=== PATIENT | female | born 1995 | race Caucasian/White ===

== ENCOUNTER 2025-01-01 11:49 | Observation (INO) | payer BC ==
[2025-01-01 13:17] LABS: BASOPHILS ABSOLUTE AUTO 0.05 K/uL (0.00-0.20); BASOPHILS PERCENT AUTO 0.7 % (0.0-1.0); EOSINOPHILS ABSOLUTE AUTO 0.21 K/uL (0.00-0.45); EOSINOPHILS PERCENT AUTO 2.9 % (0.0-6.0); HEMATOCRIT 37.6 % (37.0-47.0); HEMOGLOBIN 12.7 g/dL (12.0-16.0); IMMATURE GRAN ABSOLUTE AUTO 0.01 K/uL (0.00-0.05); IMMATURE GRAN PERCENT AUTO 0.1 % (0.0-0.4); LYMPHOCYTES ABSOLUTE AUTO 1.67 K/uL (1.00-4.80); LYMPHOCYTES PERCENT AUTO 23.2 % (24.0-44.0); MEAN CORPUSCULAR HEMOGLOBIN 30.5 pg (28.0-32.0); MEAN CORPUSCULAR HGB CONC 33.8 g/dL (32.0-36.0); MEAN CORPUSCULAR VOLUME 90.4 fL (83.0-99.0); MEAN PLATELET VOLUME 10.4 fL (9.4-12.3); MONOCYTES ABSOLUTE AUTO 0.41 K/uL (0.00-0.80); MONOCYTES PERCENT AUTO 5.7 % (0.0-8.0); NEUTROPHILS ABSOLUTE AUTO 4.86 K/uL (1.80-7.70); NEUTROPHILS PERCENT AUTO 67.4 % (41.0-71.0); PLATELET COUNT,PLT 256 K/uL (150-400); RED BLOOD CELL COUNT 4.16 M/uL (4.10-5.30); WHITE BLOOD CELL COUNT,WBC 7.21 K/uL (3.9-11.3)
[2025-01-01 13:47] LABS: A/G RATIO 1.1 (0.9-1.6); ALBUMIN 3.5 g/dL (3.4-5.0); CALCIUM 8.5 mg/dL (8.5-10.1); CARBON DIOXIDE,CO2 24.2 mmol/L (21.0-32.0); CREATININE 0.9 mg/dL (0.6-1.0); EST CRCL DRUG DOSING (CG) 90.5 mL/min; POTASSIUM,K 3.7 mmol/L (3.5-5.1); PROTEIN TOTAL,TP 6.8 g/dL (6.4-8.2)
[2025-01-01 14:15] LABS: APPEARANCE,URINE SLT CLOUDY; BILIRUBIN,URINE NEGATIVE (NEGATIVE); COLOR,URINE YELLOW; GLUCOSE,URINE NEGATIVE (NEGATIVE); KETONES,URINE TRACE mg/dL (NEGATIVE); LEUKOCYTE ESTERASE,URINE NEGATIVE (NEGATIVE); NITRITE,URINE NEGATIVE (NEGATIVE); OCCULT BLOOD,URINE LARGE (NEGATIVE); PH,URINE 5.5 (5.0-8.0); PROTEIN,URINE NEGATIVE (NEGATIVE); UROBILINOGEN,URINE 0.2 EU/dL (<2.0)
[2025-01-01 14:25] LABS: BACTERIA,URINE FEW (NEGATIVE); SQUAMOUS EPITHELIAL CELLS,UR FEW; WBC,URINE 0-2 (0-5/HPF)
[2025-01-01 14:26] LABS: MUCUS,URINE LIGHT (NONE-MOD)
[2025-01-01] MEDS: Morphine 4 MG/ML Syringe IVPUSH STA ×2 (14:46→16:53)
[2025-01-01] MEDS: Ondansetron 4 MG/2 ML SDV IVPUSH STA (14:46)
[2025-01-01 15:33] LABS: HEMATOCRIT 36.6 % (37.0-47.0); HEMOGLOBIN 12.5 g/dL (12.0-16.0)
[2025-01-01] MEDS ORDERED: fentaNYL 100 MCG/2 ML SDV ONE ×2 (17:52→19:34)
[2025-01-01] MEDS ORDERED: Propofol 200 MG/20 ML SDV ONE (17:52)
[2025-01-01] MEDS ORDERED: Midazolam 1 MG/ML 2 ML SDV ONE (17:53)
[2025-01-01] MEDS ORDERED: Lidocaine 2% 5 ML SDV ONE (17:53)
[2025-01-01] MEDS ORDERED: Rocuronium Bromide 50 MG/5 ML Syringe ONE (17:53)
[2025-01-01] MEDS ORDERED: Sodium Chloride 0.9% 20 ML ONE (17:56)
[2025-01-01] MEDS ORDERED: dexmedeTOMIDine HCl 200 MCG/2 ML SDV ONE (17:56)
[2025-01-01] MEDS ORDERED: Ropivacaine 0.5% 5 MG/ML 30 ML SDV ONE (18:00)
[2025-01-01] MEDS ORDERED: ceFAZolin 1 GM Vial ONE (18:33)
[2025-01-01] MEDS ORDERED: Dexamethasone 4 MG/ML 5 ML MDV ONE (18:47)
[2025-01-01] MEDS ORDERED: Ondansetron 4 MG/2 ML SDV ONE (18:47)
[2025-01-01] MEDS ORDERED: Sugammadex Sodium 200 MG/2 ML VIAL IV ONE (18:47)
[2025-01-01] MEDS ORDERED: Bupivacaine 0.5%/EPINEPHrine 1:200,000 30 ML SDV ONE (18:50)
[2025-01-01] MEDS ORDERED: Ketorolac 30 MG/ML SDV ONE (19:23)
[2025-01-01] MEDS ORDERED: oxyCODONE 5 MG Tab PO PRN (21:29)
[2025-01-01] MEDS ORDERED: Promethazine 25 MG/ML SDV IM PRN (21:29)
[2025-01-01] MEDS ORDERED: Morphine 4 MG/ML Syringe IVPUSH PRN (21:29)
[2025-01-01] MEDS: Ondansetron 4 MG/2 ML SDV IVPUSH PRN (22:26)
[2025-01-02] MEDS: Ketorolac 30 MG/ML SDV IVPUSH SCH (01:05)
[2025-01-02] MEDS: Acetaminophen 1,000 MG in Premix Bag 1 BAG IV SCH (01:06)
[2025-01-02] MEDS: Ketorolac 30 MG/ML SDV IVPUSH ONE (02:43)
[2025-01-02 06:44] LABS: BASOPHILS ABSOLUTE AUTO 0.02 K/uL (0.00-0.20); BASOPHILS PERCENT AUTO 0.2 % (0.0-1.0); HEMATOCRIT 33.6 % (37.0-47.0); HEMOGLOBIN 11.5 g/dL (12.0-16.0); IMMATURE GRAN ABSOLUTE AUTO 0.02 K/uL (0.00-0.05); IMMATURE GRAN PERCENT AUTO 0.2 % (0.0-0.4); LYMPHOCYTES ABSOLUTE AUTO 0.85 K/uL (1.00-4.80); LYMPHOCYTES PERCENT AUTO 8.8 % (24.0-44.0); MEAN CORPUSCULAR HEMOGLOBIN 30.8 pg (28.0-32.0); MEAN CORPUSCULAR HGB CONC 34.2 g/dL (32.0-36.0); MEAN CORPUSCULAR VOLUME 90.1 fL (83.0-99.0); MEAN PLATELET VOLUME 10.7 fL (9.4-12.3); MONOCYTES ABSOLUTE AUTO 0.27 K/uL (0.00-0.80); MONOCYTES PERCENT AUTO 2.8 % (0.0-8.0); NEUTROPHILS ABSOLUTE AUTO 8.48 K/uL (1.80-7.70); PLATELET COUNT,PLT 244 K/uL (150-400); RED BLOOD CELL COUNT 3.73 M/uL (4.10-5.30); WHITE BLOOD CELL COUNT,WBC 9.64 K/uL (3.9-11.3)
[2025-01-02 07:12] LABS: A/G RATIO 1.1 (0.9-1.6); ALBUMIN 3.2 g/dL (3.4-5.0); BILIRUBIN TOTAL 1.4 mg/dL (0.2-1.0); CARBON DIOXIDE,CO2 21.1 mmol/L (21.0-32.0); CREATININE 0.9 mg/dL (0.6-1.0); EST CRCL DRUG DOSING (CG) 90.5 mL/min; POTASSIUM,K 3.7 mmol/L (3.5-5.1); PROTEIN TOTAL,TP 6.2 g/dL (6.4-8.2)
[2025-01-02] MEDS: Docusate Sodium 100 MG Cap PO SCH (09:18)
== END 2025-01-02 11:52 | disposition home or self-care (01) ==
LOC: MW.ED 11:49 → MW.SDS 18:30 → MW.ED 18:31 → MW.MS 19:56 → MW.SDS 21:28 → MW.MS 21:29
PROVIDERS: ADMIT Obstetrics & Gynecology; ATTEND Obstetrics & Gynecology
DX: O00.102 Left tubal pregnancy without intrauterine pregnancy (principal)
CPT/HCPCS: 36415; 51702; 58301; 59151; 64488; 76830; 80053; 81001; 84702; 84703; 85014; 85018; 85025; 86850; 86900; 86901; 96374; 96375; 96376; 99285; A9270; G0378; J0131; J0690; J1100; J1885; J2003; J2250; J2270; J2405; J2704; J2795; J3010; 00840; 64486; 99222; J3490

== ENCOUNTER 2025-07-13 15:16 | Emergency (ER) | payer BC | END 2025-07-13 17:12 | disposition home or self-care (01) | LOC: MW.ED 15:16 | DX: S89.91XA Unspecified injury of right lower leg, initial encounter (principal); Z88.2 Allergy status to sulfonamides; Z79.899 Other long term (current) drug therapy; Z75.3 Unavailability and inaccessibility of health-care facilities; X58.XXXA Exposure to other specified factors, initial encounter | CPT/HCPCS: 73562; 99283; A9270 ==

== ENCOUNTER 2025-07-22 16:06 | Emergency (ER) | payer BC ==
[2025-07-22 16:40] LABS: APPEARANCE,URINE CLEAR; GLUCOSE,URINE NEGATIVE (NEGATIVE); OCCULT BLOOD,URINE LARGE (NEGATIVE)
[2025-07-22 16:51] LABS: EPITHELIAL CELLS,URINE FEW (NONE-FEW)
[2025-07-22 17:19] LABS: BASOPHILS ABSOLUTE AUTO 0.06 K/uL (0.00-0.20); BASOPHILS PERCENT AUTO 0.6 % (0.0-1.0); EOSINOPHILS ABSOLUTE AUTO 0.27 K/uL (0.00-0.45); EOSINOPHILS PERCENT AUTO 2.9 % (0.0-6.0); IMMATURE GRAN ABSOLUTE AUTO 0.04 K/uL (0.00-0.05); IMMATURE GRAN PERCENT AUTO 0.4 % (0.0-0.4); LYMPHOCYTES ABSOLUTE AUTO 2.25 K/uL (1.00-4.80); LYMPHOCYTES PERCENT AUTO 24.0 % (24.0-44.0); MEAN PLATELET VOLUME 10.6 fL (9.4-12.3); MONOCYTES ABSOLUTE AUTO 0.57 K/uL (0.00-0.80); MONOCYTES PERCENT AUTO 6.1 % (0.0-8.0); NEUTROPHILS ABSOLUTE AUTO 6.19 K/uL (1.80-7.70); NEUTROPHILS PERCENT AUTO 66.0 % (41.0-71.0); NRBC ABSOLUTE 0.00 K/uL (0.00-0.02); NRBC PERCENT 0.0 /100WBC (0.0-0.2); PLATELET COUNT,PLT 291 K/uL (150-400); RED BLOOD CELL COUNT 4.55 M/uL (4.10-5.30); WHITE BLOOD CELL COUNT,WBC 9.38 K/uL (3.9-11.3)
[2025-07-22 18:09] LABS: A/G RATIO 1.1 (0.9-1.6); ALANINE AMINOTRANSFERASE,ALT 23.0 IU/L (14-63); ASPARTATE AMNIOTRANSFERASE,AST 19.0 IU/L (15-37); BILIRUBIN TOTAL 0.7 mg/dL (0.2-1.0); BLOOD UREA NITROGEN,BUN 15.0 mg/dL (7.0-18.0); CARBON DIOXIDE,CO2 23.8 mmol/L (21.0-32.0); CHLORIDE,CL 102.0 mmol/L (98-107); CREATININE 1.0 mg/dL (0.6-1.0); EST CRCL DRUG DOSING (CG) 81.45 mL/min; GLUCOSE RANDOM 93.0 mg/dL (74-106); POTASSIUM,K 3.8 mmol/L (3.5-5.1); PROTEIN TOTAL,TP 7.4 g/dL (6.4-8.2); SODIUM,NA 137.0 mmol/L (136-145)
[2025-07-22 18:21] LABS: ESTIMATED GFR 79.0 mL/min (>60); HCG QUANTITATIVE 1268.0 mIU/mL
== END 2025-07-22 20:26 | disposition home or self-care (01) ==
LOC: MW.ED 16:06
DX: O20.0 Threatened abortion (principal); Z88.2 Allergy status to sulfonamides; Z75.3 Unavailability and inaccessibility of health-care facilities; Z3A.00 Weeks of gestation of pregnancy not specified
CPT/HCPCS: 36415; 76817; 76817-26; 80053; 81001; 84702; 85025; 86900; 86901; 99283; 99284

== ENCOUNTER 2025-08-02 15:18 | Day surgery (SDC) | payer BC ==
[2025-08-02] MEDS ORDERED: ceFAZolin 2 GM in Water For Injection, Sterile 20 ML IVPUSH ONE (15:51)
[2025-08-02 16:06] LABS: MEAN PLATELET VOLUME 11.0 fL (9.4-12.3); NRBC ABSOLUTE 0.00 K/uL (0.00-0.02); NRBC PERCENT 0.0 /100WBC (0.0-0.2); PLATELET COUNT,PLT 259 K/uL (150-400); RED BLOOD CELL COUNT 4.40 M/uL (4.10-5.30); WHITE BLOOD CELL COUNT,WBC 7.82 K/uL (3.9-11.3)
[2025-08-02] MEDS: Lactated Ringers 1,000 ML IV SCH (16:17)
[2025-08-02] MEDS ORDERED: Midazolam 1 MG/ML 2 ML SDV ONE (17:07)
[2025-08-02] MEDS ORDERED: fentaNYL 100 MCG/2 ML SDV ONE (17:07)
[2025-08-02] MEDS ORDERED: Propofol 200 MG/20 ML SDV ONE (17:07)
[2025-08-02] MEDS ORDERED: Ropivacaine 0.5% 5 MG/ML 30 ML SDV ONE (17:09)
[2025-08-02] MEDS ORDERED: dexmedeTOMIDine HCl 200 MCG/2 ML SDV ONE (17:10)
[2025-08-02] MEDS ORDERED: Ondansetron 4 MG/2 ML SDV ONE (18:25)
[2025-08-02] MEDS ORDERED: Ketorolac 30 MG/ML SDV ONE (18:25)
[2025-08-02] MEDS ORDERED: Dexamethasone 4 MG/ML 5 ML MDV ONE (18:25)
[2025-08-02] MEDS ORDERED: Promethazine 25 MG/ML SDV IM PRN (19:17)
[2025-08-02] MEDS ORDERED: Ondansetron 4 MG/2 ML SDV IVPUSH PRN (19:17)
[2025-08-02] MEDS: Acetaminophen/oxyCODONE 325-5 MG Tab PO PRN (22:15)
== END 2025-08-02 23:40 | disposition home or self-care (01) ==
LOC: MW.SDS 15:18 → MW.MS 15:27 → MW.SDS 23:25
PROVIDERS: ATTEND Obstetrics & Gynecology
DX: O00.90 Unspecified ectopic pregnancy without intrauterine pregnancy (principal); N83.202 Unspecified ovarian cyst, left side; Z88.2 Allergy status to sulfonamides; Z88.8 Allergy status to other drugs, medicaments and biological substances; Z87.891 Personal history of nicotine dependence
CPT/HCPCS: 36415; 49322; 59151; 64488; 85027; 86850; 86900; 86901; A9270; C1729; J0665; J0690; J1100; J1171; J1885; J2003; J2250; J2405; J2704; J2795; J3010; J7120; J3490